=== PATIENT | male | born 1985 | race Two or more races ===

== ENCOUNTER 2024-11-18 16:25 | Emergency (ER) | payer OTHER ==
[~2024-11-18] VITALS: Ht 190.5 cm; Wt 84.4 kg
[2024-11-18 17:45] LABS: BASOPHILS % (AUTO) 0.2 % (0.0-2.0); EOSINOPHILS % (AUTO) 0.1 % (0.0-7.0); HEMATOCRIT 41.6 % (36.7-47.1); LYMPHOCYTES # (AUTO) 0.2 K/uL (0.8-4.8); LYMPHOCYTES % (AUTO) 2.2 % (20.5-51.5); MEAN CORPUSCULAR HEMOGLOBIN 27.8 uug (23.8-33.4); MEAN CORPUSCULAR HGB CONC 34 g/dL (32.5-36.3); MEAN CORPUSCULAR VOLUME 82.7 fL (73.0-96.2); MONOCYTES # (AUTO) 0.3 K/uL (0.1-1.30); MONOCYTES % (AUTO) 2.8 % (0.0-11.0); NEUTROPHILS % (AUTO) 94.7 % (38.5-71.5); PLATELET COUNT (AUTO) 160 K/uL (152-348); RED BLOOD CELL COUNT(AUTO) 5.03 MIL/uL (4.06-5.63); RED CELL DISTRIBUTION WIDTH 13.3 % (12.1-16.2); WHITE BLOOD COUNT (AUTO) 9.5 K/uL (3.6-10.2)
[2024-11-18 17:46] LABS: DIFFERENTIAL COMMENT 1
[2024-11-18 17:52] LABS: CALCIUM 8.4 mg/dL (8.5-10.1); CREATININE 1.2 mg/dL (0.6-1.3); POTASSIUM 4.2 mmol/L (3.5-5.1)
[2024-11-18] MEDS ORDERED: PROCHLORPERAZINE MALEATE 5 MG TABLET ONE (17:53)
[2024-11-18] MEDS ORDERED: HYDROCODONE/APAP 10-325 MG TABLET ONE (17:53)
[2024-11-18] MEDS: PROCHLORPERAZINE MALEATE 5 MG TABLET PO ONE (17:54)
[2024-11-18] MEDS: HYDROCODONE/APAP 10-325 MG TABLET PO ONE (17:54)
[2024-11-18] MEDS ORDERED: HYDR-3980 PO (18:20)
[2024-11-18] MEDS ORDERED: PROC10TA29 PO (18:20)
[2024-11-18 18:28] LABS: *BILIRUBIN,URIN NEGATIVE (NEGATIVE); *BLOOD, URINE NEGATIVE (NEGATIVE); *CLARITY,URINE CLEAR (CLEAR); *COLOR,URINE YELLOW (YELLOW); *KETONES,URINE 1+ (NEGATIVE); *PROTEIN,URINE TRACE (NEGATIVE); *UROBILINOGEN,URINE 0.2 E.U./dl (NORMAL); LEUKOCYTE ESTERASE ,URINE NEGATIVE (NEGATIVE); NITRITE, URINE NEGATIVE (NEGATIVE); PH,URINE 7.5 (5.0-8.0); RBC,URINE 0-3 /HPF (0-3); UGLUCOSE NEGATIVE (NEGATIVE); WBC,URINE 0-3 /HPF (0-3)
[2024-11-18 18:54] VITALS: BP 106/74; TEMP 97.8; O2SAT 16
== END 2024-11-18 18:57 | disposition home or self-care (01) ==
LOC: ER 16:25
DX: J11.1 Influenza due to unidentified influenza virus with other respiratory manifestations (principal); R11.2 Nausea with vomiting, unspecified
CPT/HCPCS: 99283; 87804 ×2; 80048; 81001; 85025; 36415; J8499; A4606; A4663